=== PATIENT | male | born 1985 | race African-American/Black ===

== ENCOUNTER 2020-08-10 14:08 | Emergency (ER) | payer BC, MEDICAID ==
[~2020-08-10] VITALS: Ht 167.6 cm; Wt 127.0 kg
[2020-08-10 15:53] VITALS: BP 164/96
== END 2020-08-10 15:53 | disposition home or self-care (01) ==
LOC: ER 14:08
DX: I10 Essential (primary) hypertension (principal)
CPT/HCPCS: 93005; 99283